=== PATIENT | female | born 1960 ===

== ENCOUNTER 2016-10-28 06:42 | Day surgery (SDC) | payer BC ==
[~2016-10-28] VITALS: Ht 157.5 cm; Wt 87.5 kg
[2016-10-28] VITALS (7 sets, daily range): BP systolic 139–155; BP diastolic 69–82
--- NOTE | 2016-10-28 06:10 | Anethesia Preoperative Eval ---
Anesthesia Pre-op PMH/ROS General Date of Evaluation: Oct 28, 2016 Time of Evaluation: 06:06 Anesthesiologist: uri ASA Score: ASA 3 Mallampati Score Class I : Soft palate, uvula, fauces, pillars visible Class II: Soft palate, uvula, fauces visible Class III: Soft palate, base of uvula visible Class IV: Only hard plate visible Mallampati Classification: Class II Surgeon: andria Diagnosis: melena Surgical Procedure: colonoscopy Anesthesia History: none Social History: smoking - fomer smoker Family History: no anesthesia problems Allergies: Coded Allergies: No Known Allergies (Unverified , 10/25/16) Medications: see eMAR Past Medical History Pulmonary: Reports: ADALI, other - pneumonia, cpap, Endocrine: Reports: hypothyroidism - cancer Musculoskeletal/Integumentary: Reports: RA Other: obesity PSxH Narrative: thyroidectomy, bilateral breast reduction, cholecystectomy, colonoscopy Anesthesia Pre-op Phys. Exam Physician Exam Constitutional: NAD Neurologic: CN 2-12 intact Cardiovascular: RRR Respiratory: CTA Gastrointestinal: S/NT/ND Airway Exam Mallampati Score: Class II MO: full Neck: supple TMD: 2fb ROM: full Teeth: intact Anesthesia Pre-op A/P Risk Assessment & Plan Assessment: asa3 Plan: mac Status Change Before Surgery: No Pre-Antibiotics Drug: BEATA Conti Oct 28, 2016 06:10
[~2016-10-28 06:42] MED LIST: CALCITRIOL0.25 MCG PO; MAGNESIUM250 M3 PO; METFORMIN HCL850 M1 ORAL; MYCOPHENOLATE500 MG PO; OMEPRAZOLE40 M1 ORAL; SYNTHROID150 MCG ORAL; TUMS500 MG ORAL; VITAMIN D1000 UNI1 ORAL; VITAMIN E400 UNI5 PO
[2016-10-28] MEDS ORDERED: LR 1000ml 1,000 ML IVLG SCH ×2 (07:00→08:33)
[2016-10-28] MEDS ORDERED: Esmolol 100mg/10ml Inj ONE (08:00)
[2016-10-28] MEDS ORDERED: Propofol 10mg/ml 20ml IV ONE (08:00)
[2016-10-28] MEDS ORDERED: LR 1000ml ONE (08:00)
[2016-10-28] MEDS ORDERED: Lidocaine 1% MPF 10mg/ml 5ml ONE (08:00)
--- NOTE | 2016-10-28 08:11 | Pre-Procedure Note/Attestation ---
Pre-Procedure Note/Attestation Complete Prior to Procedure Planned Procedure: not applicable Procedure Narrative: colon Indications for Procedure Pre-Operative Diagnosis: blood in stool Attestation I attest that I discussed the nature of the procedure; its benefits; risks and complications; and alternatives (and the risks and benefits of such alternatives ), prior to the procedure, with the patient (or the patient's legal it sales representative). I attest that, if there was a reasonable possibility of needing a blood transfusion, the patient (or the patient's legal it sales representative) was given the [facility] standardized written summary, pursuant to the [place] Blood Safety Act ([place] Health and Safety Code # 1645, as amended). I attest that I re-evaluated the patient just prior to the surgery and that there has been no change in the patient's H&P, except as documented below: CHRIS KELLY Oct 28, 2016 08:11
[2016-10-28] MEDS ORDERED: Midazolam 2mg/2ml Inj IVP PRN (08:45)
[2016-10-28] MEDS ORDERED: Hydromorphone 0.5mg/0.5ml inj IVP PRN (08:45)
[2016-10-28] MEDS ORDERED: DiphenhydrAMINE 50mg/ml Inj IVP PRN (08:45)
[2016-10-28] MEDS ORDERED: Atropine Inj 1mg/10ml Syr IV PRN (08:45)
--- NOTE | 2016-10-28 09:02 | Short Stay Surgery H&P ---
History of Present Illness History of Present Illness Chief Complaint See attached updated H&P HPI Lin Perry is a 56 year old female who was admitted on for Melena Patient History Allergies: Coded Allergies: No Known Allergies (Unverified , 10/25/16) PAST MEDICAL HISTORY: Past Surgeries: Social History: Medication History Scheduled Calcitriol (Calcitriol), 0.25 MCG PO DA, (Reported) Cholecalciferol (Vitamin D3)* (Vitamin D*), 2,000 UNITS ORAL DAILY, (Reported) Levothyroxine Sodium* (Synthroid*), 150 MCG ORAL DAILY, (Reported) Magnesium (Magnesium), 500 MG PO BID, (Reported) Metformin Hcl* (Metformin Hcl*), 850 MG ORAL DAILY, (Reported) Mycophenolate Mofetil (Mycophenolate Mofetil), 500 MG PO BID, (Reported) Omeprazole (Omeprazole), 40 MG ORAL DAILY, (Reported) Vitamin E Mixed (Vitamin E), 400 UNIT PO DA, (Reported) Scheduled PRN Calcium Carbonate (Calcium), 1,200 MG ORAL BID PRN for HEARTBURN, (Reported) Physical Exam Vital Signs Last Vital Signs Date Time Temp Pulse Resp B/P Pulse Ox O2 Delivery O2 Flow Rate FiO2 10/28/16 07:31 97.4 80 18 141/82 100 Room Air Plan Attestation Are the patient's medical conditions optimized for surgery? CHRIS KELLY Oct 28, 2016 09:02
--- NOTE | 2016-10-28 09:05 | Endoscopy Procedure Note ---
Endoscopy Procedure Note Indication for Procedure: BRB, diarrhea Operative Findings/Diagnosis: cecum dim - SN -lost, asc dim - SN, sig dim at 1 - bx, RND BX R/L/Rect Specimen: yes Pt Tolerated Procedure Well: Yes Estimated Blood Loss: minimal Anesthesiologist: present Anesthesia: MAC Medication Given: see anesthesia record Implant(s) used?: No 50 yrs or older w/o bx or poly: Not Applicable 10yrs. F/U not recommended: Not Applicable If not recommended, why?: CHRIS KELLY Oct 28, 2016 09:05
--- NOTE | 2016-10-28 09:06 | Brief Operative Note ---
Immediate Post Operative Note Operative Note Chief Complaint: BRB, diarrhea Pre-op Diagnosis: blood in stool Procedure: Colon bx, snare Post-op Diagnosis: Colon polyps, mild rhoid Surgeon: andria Anesthesiologist: see attached Anesthesia: MAC Specimen: yes Complications: none Condition: stable Estimated Blood Loss: none Drains: none Implant(s) used?: No CHRIS KELLY Oct 28, 2016 09:06
--- NOTE | 2016-10-28 09:12 | Immediate Post-Op Evaluation ---
Immediate Post-Op Evalulation Immediate Post-Op Evalulation Procedure: colonoscopy Date of Evaluation: Oct 28, 2016 Time of Evaluation: 09:12 IV Fluids: lr 350ml Blood Products: none Estimated Blood Loss: negligible Blood Pressure Systolic: 139 Blood Pressure Diastolic: 82 Pulse Rate: 69 Respiratory Rate: 18 O2 Sat by Pulse Oximetry: 100 Temperature (Fahrenheit): 97.2 Pain Score (1-10): 0 Nausea: No Vomiting: No Complications none Patient Status: awake, reacts, patent Hydration Status: adequate Drug: BEATA Conti Oct 28, 2016 09:12
--- NOTE | 2016-10-28 09:14 | 48 Hour Post Anesthesia Eval ---
Post Anesthesia Evaluation Procedure: colonoscopy Date of Evaluation: Oct 28, 2016 Time of Evaluation: 09:14 Blood Pressure Systolic: 139 0: 82 Pulse Rate: 69 Respiratory Rate: 18 Temperature (Fahrenheit): 97.2 O2 Sat by Pulse Oximetry: 100 Airway: patent Nausea: No Vomiting: No Pain Intensity: 0 Hydration Status: adequate Cardiopulmonary Status: stable Mental Status/LOC: patient returned to baseline Post-Anesthesia Complications: none Follow-up care needed: N/A BEATA KIM Oct 28, 2016 09:14
--- NOTE | 2016-10-28 13:15 | Procedure Note ---
DATE OF PROCEDURE: 10/28/2016 GASTROENTEROLOGY PROCEDURE REPORT PROCEDURE: Colonoscopy with biopsy and snare polypectomy. SURGEON: Ifeanyi Garcia M.D. ANESTHESIA: Please see the separate anesthesiologist notes for details. PRE-ENDOSCOPIC DIAGNOSES: Intermittent hematochezia and loose stools. POST-ENDOSCOPIC DIAGNOSES: 1. Diminutive polyp in the cecum, status post snare polypectomy, but the polyp was lost in the channel. 2. Diminutive polyp in the proximal ascending colon, status post snare polypectomy. 3. Diminutive polyp in the rectosigmoid area at 15 centimeters, status post biopsy removal. 4. Normal widening of colonic mucosa, otherwise all the way to the terminal ileum, status post random biopsy of the right colon, left colon, and rectum. RECOMMENDATIONS: 1. Follow up biopsy results. 2. Outpatient followup. Ifeanyi Garcia M.D. DR: MARRY JOB#: [id number] CC:
--- NOTE | 2016-10-31 00:30 | Procedure Note ---
DATE OF PROCEDURE: 10/28/2016 GASTROENTEROLOGY PROCEDURE REPORT SURGEON: Ifeanyi Garcia M.D. PROCEDURE: Colonoscopy with biopsy and snare polypectomy. ANESTHESIA: Please see the separate anesthesiologist notes for details. PRE-ENDOSCOPIC DIAGNOSES: Intermittent hematochezia and loose stools. POST-ENDOSCOPIC DIAGNOSES: 1. Diminutive polyp in the cecum, status post snare polypectomy, but the polyp was lost in the channel. 2. Diminutive polyp in the proximal ascending colon, status post snare polypectomy. 3. Diminutive polyp in the rectosigmoid area at 16 cm, status post biopsy removal. 4. Normal colonic mucosa of the terminal ileum, status post random biopsy of the right colon, left colon, and rectum. DESCRIPTION OF PROCEDURE: The procedure, its risks, indications, alternatives, and possible complications including, but not limited to bleeding, infection, perforation, , and anesthesia complications were explained to the patient and informed consent was obtained. The patient was then sedated in the left lateral decubitus position. A diagnostic colonoscope was introduced into the rectum and after rectal exam was done and advanced to the terminal ileum without difficulty. The colonoscope was then gradually withdrawn and mucosa examined carefully. Examination of the colonic mucosa revealed the above findings and procedures listed above. Retroflexed view of the rectum was unremarkable. The colonoscope was removed and the patient was sent to recovery in good condition. COMPLICATIONS: None. RECOMMENDATIONS: 1. Follow up biopsy results. 2. Outpatient followup. Ifeanyi Garcia M.D. DR: KACY JOB#: [id number] CC:
== END 2016-10-28 10:25 | disposition home or self-care (01) ==
LOC: GAS 06:42
DX: K92.1 Melena (principal); D12.2 Benign neoplasm of ascending colon; D12.0 Benign neoplasm of cecum; D12.7 Benign neoplasm of rectosigmoid junction; M32.9 Systemic lupus erythematosus, unspecified; E11.9 Type 2 diabetes mellitus without complications; Z79.84 Long term (current) use of oral hypoglycemic drugs; K21.9 Gastro-esophageal reflux disease without esophagitis; G47.33 Obstructive sleep apnea (adult) (pediatric); M06.9 Rheumatoid arthritis, unspecified; K75.81 Nonalcoholic steatohepatitis (NASH); E89.0 Postprocedural hypothyroidism; Z90.49 Acquired absence of other specified parts of digestive tract; E66.9 Obesity, unspecified; Z68.38 Body mass index [BMI] 38.0-38.9, adult
CPT/HCPCS: 45380; 45385; 82962; J2704; J7120; 94003; 94150